=== PATIENT | male | born 1975 | race African-American/Black ===

== ENCOUNTER 2016-10-17 07:02 | Emergency (ER) | payer BC ==
[2016-10-17] MEDS ORDERED: SODIUM CHLORIDE 1,000 ML IV STA ×2 (07:04→08:32)
[2016-10-17] MEDS ORDERED: ONDANSETRON 4 MG/2 ML VIAL IVPB ONE (07:04)
[2016-10-17] MEDS ORDERED: morphine CARPU-JECT 4 MG/1 ML DISP.SYRIN IVPUSH PRN (07:04)
[2016-10-17] MEDS ORDERED: KETOROLAC TROMETHAMINE 30 MG/1 ML VIAL IVPUSH ONE (07:04)
--- NOTE | 2016-10-17 07:09 | PDOC ---
History of Present Illness - General Chief Complaint: Pain Stated Complaint: KIDNEY STONE Time Seen by Provider: 10/17/16 07:04 History Source: Patient Exam Limitations: No Limitations - History of Present Illness Initial Comments: 10/17/16 07:06 The patient is a 41-year-old male, with a significant past medical history of nephrolithiasis and ureterolithiasis, who presents to the emergency department with the acute onset of moderate to severe, waxing and waning, right-sided flank pain, accompanied by nausea and vomiting. He was seen in our emergency department on September 01 for left-sided flank pain. CT done at that time showed a 4 mm stone at the left UVJ. It also showed a 7 mm and a 4 mm stone in the inferior pole of the right kidney. He denies fever, chills, sweats. He denies abdominal pain, testicular pain. He states that this pain is of a very similar nature to the pain he experienced on September 01. Past History - Past Medical History Allergies/Adverse Reactions: Allergies Allergy/AdvReac Type Severity Reaction Status Date / Time No Known Allergies Allergy Verified 09/01/16 01:12 Home Medications: Ambulatory Orders Naproxen [Naprosyn] 500 mg PO BID PRN #20 tablet 10/17/16 Ondansetron [Zofran *Odt*] 8 mg SL TID #15 od.tablet 10/17/16 Oxycodone HCl/Acetaminophen [Percocet 5-325 mg Tablet] 1 - 2 tab PO Q4H #20 tablet MDD 8 10/17/16 Tamsulosin HCl [Flomax] 0.4 mg PO DAILY #30 cap.er.24h 10/17/16 - Psycho/Social/Smoking Cessation Hx Anxiety: No Suicidal Ideation: No Smoking History: Current every day smoker Have you smoked in the past 12 months: Yes Number of Cigarettes Smoked Daily: 2 'Breaking Loose' booklet given: 09/01/16 Hx Alcohol Use: No Drug/Substance Use Hx: No Substance Use Type: None Review of Systems - Review of Systems Comments:: 10/17/16 07:07 CONSTITUTIONAL: Absent: fever, chills, diaphoresis, generalized weakness, malaise, loss of appetite HEENT: Absent: rhinorrhea, nasal congestion, throat pain, throat swelling, difficulty swallowing, mouth swelling, ear pain, eye pain, visual Changes CARDIOVASCULAR: Absent: chest pain, loss of consciousness, palpitations, irregular heart rate, peripheral edema RESPIRATORY: Absent: cough, shortness of breath, dyspnea with exertion, orthopnea, wheezing, stridor, hemoptysis GASTROINTESTINAL: Present: Nausea, vomiting Absent: abdominal pain, abdominal distension, diarrhea, constipation, melena, hematochezia GENITOURINARY: Present: Flank pain Absent: dysuria, frequency, urgency, hesitancy, hematuria, genital pain MUSCULOSKELETAL: Absent: myalgia, arthralgia, joint swelling SKIN: Absent: rash, itching, pallor HEMATOLOGIC/IMMUNOLOGIC: Absent: easy bleeding, easy bruising, lymphadenopathy, frequent infections ENDOCRINE: Absent: unexplained weight gain, unexplained weight loss, heat intolerance, cold intolerance NEUROLOGIC: Absent: headache, focal weakness or paresthesias, dizziness, unsteady gait, seizure, mental status changes, bladder or bowel incontinence PSYCHIATRIC: Absent: anxiety, depression, suicidal or homicidal ideation, hallucinations. *Physical Exam - Physical Exam Comments: 10/17/16 07:07 GENERAL: Well developed, well nourished. Awake and alert. No acute distress. HEENT: Normocephalic, atraumatic. PERRLA, EOMI. No conjunctival pallor. Sclera are non- icteric. Moist mucous membranes. Oropharynx is clear. NECK: Supple. Full ROM. No JVD. Carotid pulses 2+ and symmetric, without bruits. No thyromegaly. No lymphadenopathy. CARDIOVASCULAR: Regular rate and rhythm. No murmurs, rubs, or gallops. Distal pulses are 2+ and symmetric. PULMONARY: No evidence of respiratory distress. Lungs clear to auscultation bilaterally. No wheezing, rales or rhonchi. ABDOMINAL: Right-sided CVA tenderness. Soft. Non-tender. Non-distended. No rebound or guarding. No organomegaly. Normoactive bowel sounds. MUSCULOSKELETAL Normal range of motion at all joints. No bony deformities or tenderness. EXTREMITIES: No cyanosis. No clubbing. No edema. No calf tenderness. SKIN: Warm and dry. Normal capillary refill. No rashes. No jaundice. NEUROLOGICAL: Alert, awake, appropriate. Cranial nerves 2-12 intact. No deficits to light touch and temperature in face, upper extremities and lower extremities. No motor deficits in the in face, upper extremities and lower extremities. Normoreflexic in the upper and lower extremities. Normal speech. Toes are down- going bilaterally. Gait is normal without ataxia. PSYCHIATRIC: Cooperative. Good eye contact. Appropriate mood and affect. Medical Decision Making - Medical Decision Making 10/17/16 07:08 The patient is well-appearing and in no acute distress His abdomen is soft and nontender Given his previous history of ureterolithiasis, his known right sided nephrolithiasis, I am highly suspicious for ureteral colic secondary to right sided ureterolithiasis Will place IV Will administer IV analgesia Will administer IV antiemetics Will obtain urinalysis At this point in time, I do not think there is a need for imaging 10/17/16 07:36 Pain has completely resolved Abdominal remains nontender Urinalysis pending 10/17/16 09:37 The patient is well appearing and asymptomatic He was able to urinate Clinical impression: Right-sided ureterolithiasis He has an a urologist to whom he was referred on his last visit I discussed the physical exam findings, ancillary test results and final diagnoses with the patient. I answered all of the patient's questions. The patient was satisfied with the care received and felt comfortable with the discharge plan and treatment plan. The patient will call their primary care physician within 24 hours to arrange follow-up and will return to the Emergency Department with any new, persistent or worsening symptoms. 10/17/16 09:42 Urinalysis noted, without any evidence of infection *DC/Admit/Observation/Transfer Diagnosis at time of Disposition: Kidney stone on right side - Discharge Dispostion Disposition: HOME Condition at time of disposition: Improved - Prescriptions Prescriptions: Tamsulosin HCl [Flomax] 0.4 mg PO DAILY #30 cap.er.24h Naproxen [Naprosyn] 500 mg PO BID PRN #20 tablet PRN Reason: Pain Oxycodone HCl/Acetaminophen [Percocet 5-325 mg Tablet] 1 - 2 tab PO Q4H #20 tablet MDD 8 Ondansetron [Zofran *Odt*] 8 mg SL TID #15 od.tablet - Patient Instructions Printed Discharge Instructions: Kidney Stones -- Adult Additional Instructions: If need be, make another appointment with the same urologist to whom you were referred on your last visit. Return to the emergency department immediately with ANY new, persistent or worsening symptoms. You MUST call and follow up with your doctor tomorrow. Please make sure your doctor reviews the results of your emergency department evaluation. - Post Discharge Activity Work/School Note: Back to Work
[2016-10-17] MEDS ORDERED: morphine CARPU-JECT 10 MG/1 ML DISP.SYRIN ONE (07:10)
[2016-10-17] MEDS ORDERED: ONDANSETRON 4 MG/2 ML VIAL ONE (07:10)
[2016-10-17] MEDS ORDERED: KETOROLAC TROMETHAMINE 30 MG/1 ML VIAL ONE (07:10)
[2016-10-17 08:14] VITALS: BP 110/72
[2016-10-17 08:26] VITALS: PULSE 57; TEMP 97.9; BMI 28.5
[2016-10-17 09:36] LABS: PH,URINE 5.5 (4.5-8); URINE BILIRUBIN 1+ (NEGATIVE); URINE GLUCOSE (UA) Negative (NEGATIVE); URINE KETONE Negative (NEGATIVE); URINE LEUK ESTERASE Negative (NEGATIVE); URINE NITRITE Negative (NEGATIVE); URINE UROBILINOGEN 0.2 E.U/dl (0.2-1.0)
[2016-10-17 09:41] LABS: URINE APPEARANCE CLOUDY; URINE BLOOD 3+ (NEGATIVE); URINE COLOR AMBER; URINE PROTEIN 1+ (NEGATIVE)
[2016-10-17 10:13] LABS: URINE RBC >100 /hpf (0-3)
== END 2016-10-17 09:55 | disposition home or self-care (01) ==
LOC: FER 07:02
PROC: 3E033NZ Introduction of Analgesics, Hypnotics, Sedatives into Peripheral Vein, Percutaneous Approach (ICD-10-PCS; principal; 2016-10-17)
PROC: 3E033GC Introduction of Other Therapeutic Substance into Peripheral Vein, Percutaneous Approach (ICD-10-PCS; 2016-10-17)
PROC: 3E0333Z Introduction of Anti-inflammatory into Peripheral Vein, Percutaneous Approach (ICD-10-PCS; 2016-10-17)
PROC: 3E0337Z Introduction of Electrolytic and Water Balance Substance into Peripheral Vein, Percutaneous Approach (ICD-10-PCS; 2016-10-17)
DX: N20.0 Calculus of kidney (principal); Z87.442 Personal history of urinary calculi; F17.210 Nicotine dependence, cigarettes, uncomplicated
CPT/HCPCS: 81003; 81015; 87086; 99284-25

== ENCOUNTER 2016-10-20 16:28 | Observation (INO) | payer BC ==
--- NOTE | 2016-10-20 16:31 | PDOC ---
History of Present Illness - History of Present Illness Initial Comments: 10/20/16 16:55 The patient is a 41 year old male with a past medical hx of nephrolithiasis and ureterolithiasis who presents to the ED complaining of right sided flank pain since 1330 this afternoon. The patient was last seen here on 10/17/16 for the same complaint and was discharged with a diagnosis of kidney stones. He describes the pain as constant and radiating into his RLQ. He reports he was feeling better after being discharged up until 1330 this afternoon. He notes he has been vomiting since the onset of his pain. He reports he took one Percocet for the pain but vomited shortly after so it did not help. His last bowel movement was this morning, which was normal. He denies dysuria, frequency, groin pain He denies cough, fever, chills, diarrhea PCP: Dr. Fulton Surgical: Denies any surgeries Social: No toxic habits reported <Mayra Reese - Last Filed: 10/20/16 17:32> - General History Source: Patient, Old Records Exam Limitations: No Limitations <Kathya Alas - Last Filed: 10/20/16 18:17> - General Chief Complaint: Pain Stated Complaint: KIDNEY STONE Time Seen by Provider: 10/20/16 16:31 Past History <Mayra Reese - Last Filed: 10/20/16 17:32> - Past Medical History Kidney Stones: Yes - Psycho/Social/Smoking Cessation Hx Anxiety: No Suicidal Ideation: No Smoking History: Current every day smoker Have you smoked in the past 12 months: Yes Number of Cigarettes Smoked Daily: 2 'Breaking Loose' booklet given: 10/17/16 Hx Alcohol Use: No Drug/Substance Use Hx: No Substance Use Type: None <Kathya Alas - Last Filed: 10/20/16 18:17> - Past Medical History Allergies/Adverse Reactions: Allergies Allergy/AdvReac Type Severity Reaction Status Date / Time No Known Allergies Allergy Verified 10/20/16 16:41 Home Medications: Ambulatory Orders Naproxen [Naprosyn] 500 mg PO BID PRN #20 tablet 10/17/16 Ondansetron [Zofran *Odt*] 8 mg SL TID #15 od.tablet 10/17/16 Oxycodone HCl/Acetaminophen [Percocet 5-325 mg Tablet] 1 - 2 tab PO Q4H #20 tablet MDD 8 10/17/16 Tamsulosin HCl [Flomax] 0.4 mg PO DAILY #30 cap.er.24h 10/17/16 Review of Systems - Review of Systems Able to Perform ROS?: Yes Comments:: 10/20/16 16:56 CONSTITUTIONAL: Absent: fever, chills, diaphoresis, generalized weakness, malaise, loss of appetite HEENT: Absent: rhinorrhea, nasal congestion, throat pain, throat swelling, difficulty swallowing, mouth swelling, ear pain, eye pain, visual Changes CARDIOVASCULAR: Absent: chest pain, syncope, palpitations, irregular heart rate, lightheadedness , peripheral edema RESPIRATORY: Absent: cough, shortness of breath, dyspnea with exertion, orthopnea, wheezing, stridor, hemoptysis GASTROINTESTINAL: +Nausea, vomiting, RLQ abdominal pain. Absent: abdominal distension, diarrhea, constipation, melena, hematochezia GENITOURINARY: +Right sided flank pain. Absent: dysuria, frequency, urgency, hesitancy, hematuria, genital pain MUSCULOSKELETAL: Absent: groin pain, myalgia, arthralgia, joint swelling SKIN: Absent: rash, itching, pallor HEMATOLOGIC/IMMUNOLOGIC: Absent: easy bleeding, easy bruising, lymphadenopathy, frequent infections ENDOCRINE: Absent: unexplained weight gain, unexplained weight loss, heat intolerance, cold intolerance NEUROLOGIC: Absent: headache, focal weakness or paresthesias, dizziness, unsteady gait, seizure, mental status changes, bladder or bowel incontinence PSYCHIATRIC: Absent: anxiety, depression, suicidal or homicidal ideation, hallucinations <Mayra Reese - Last Filed: 10/20/16 17:32> *Physical Exam - Vital Signs Last Vital Signs Temp Pulse Resp BP Pulse Ox 65 26 H 142/87 100 10/20/16 16:31 10/20/16 16:31 10/20/16 16:31 10/20/16 16:31 - Physical Exam Comments: 10/20/16 16:56 GENERAL: Well developed, well nourished. Awake and alert. In no acute distress. HEENT: Normocephalic, atraumatic. PERRLA, EOMI. No conjunctival pallor. Sclera are non- icteric. Moist mucous membranes. Oropharynx is clear. NECK: Supple. Full ROM. No JVD. Carotid pulses 2+ and symmetric, without bruits. No thyromegaly. No lymphadenopathy. CARDIOVASCULAR: Regular rate and rhythm. No murmurs, rubs, or gallops. Distal pulses are 2+ and symmetric. PULMONARY: No evidence of respiratory distress. Lungs clear to auscultation bilaterally. No wheezing, rales or rhonchi. ABDOMINAL: Soft. Non-tender. Non-distended. No rebound or guarding. No organomegaly. Normoactive bowel sounds. MUSCULOSKELETAL Normal range of motion at all joints. No bony deformities or tenderness. No CVA tenderness. EXTREMITIES: No cyanosis. No clubbing. No edema. No calf tenderness. SKIN: Warm and dry. Normal capillary refill. No rashes. No jaundice. NEUROLOGICAL: Alert, awake, appropriate. Cranial nerves 2-12 intact. No deficits to light touch and temperature in face, upper extremities and lower extremities. No motor deficits in the in face, upper extremities and lower extremities. Normoreflexic in the upper and lower extremities. Normal speech. Toes are downgoing bilaterally. Gait is normal without ataxia. PSYCHIATRIC: Cooperative. Good eye contact. Appropriate mood and affect. <Mayra Reese - Last Filed: 10/20/16 17:32> ED Treatment Course - RADIOLOGY Radiograph Interpretation: 10/20/16 17:33 [id number] US/KIDNEY / RENAL US HISTORY PROVIDED: Right flank pain. Real time examination of the kidneys demonstrates the following: The kidneys are normal in size with the right kidney measuring 10.8 x 6.0 x 6.6 cm and the left kidney measuring 11.6 x 6.2 x 7.8 cm. They are normal in position and texture with no evidence of hydronephrosis or contour deforming renal masses. There is no sonographic evidence of nephrolithiasis. IMPRESSION: Morphologically normal kidneys with no evidence of nephrolithiasis, hydronephrosis or acute pathology. Reported By: Foreign Cabrera MD 10/20/16 4319 - Medications Given in the ED: ED Medications Discontinued Medications Generic Name Dose Route Start Last Admin Trade Name Freq PRN Reason Stop Dose Admin Ketorolac Tromethamine 30 mg 10/20/16 16:32 10/20/16 16:35 Toradol Injection - IVPUSH 10/20/16 16:33 30 mg ONCE ONE Administration Ondansetron HCl 4 mg 10/20/16 16:40 10/20/16 16:45 Zofran Injection IVPUSH 10/20/16 16:41 4 mg ONCE ONE Administration <Mayra Reese - Last Filed: 10/20/16 17:32> - LABORATORY CBC & Chemistry Diagram: 10/20/16 16:35 10/20/16 16:35 <Kathya Alas - Last Filed: 10/20/16 18:17> Medical Decision Making - Medical Decision Making 10/20/16 16:51 41-year-old male with history of bilateral nephrolithiasis or's diagnosed in August 2016 and seen in the ED 3 days ago with complaints of right flank pain presents to the emergency department with recurrent pain in the right flank radiating to the right lower quadrant associated with nausea and vomiting that started at 1 PM today. Differential diagnosis includes but is not limited to:, Passage of stone, pyelonephritis, UTI, appendicitis (less likely given his non- tender abdomen on physical exam), dehydration, electrolyte abnormality, toxic/ metabolic derangement. Plan: 1. Labs 2. Urine analysis 3. Pain management 4. Antiemetics 5. Ultrasound to rule out hydronephrosis 6. Observe and reevaluate <Kathya Alas - Last Filed: 10/20/16 18:17> *DC/Admit/Observation/Transfer - Attestations Scribe Attestion: 10/20/16 16:55 Documentation prepared by Mayra Reese, acting as medical delivery technician for Kathya Alas MD <Mayra Reese - Last Filed: 10/20/16 17:32> - Attestations Physician Attestion: 10/20/16 16:52 I, Dr. Kathya Alas, attest that the scribes documentation that appears above has been prepared under my direction and personally reviewed by me in its entirety. I confirmed that the note above accurately reflects all work, treatment, procedures, and medical decision-making performed by me. <Kathya Alas - Last Filed: 10/20/16 18:17> Diagnosis at time of Disposition: Renal colic on right side - Discharge Dispostion Condition at time of disposition: Good - Referrals Referrals: Rebecca Fulton MD [Primary Care Provider] - [facility] [Non Staff, Medical] - Jared Ralph MD [Non Staff, Medical] -
[2016-10-20] MEDS ORDERED: KETOROLAC TROMETHAMINE 30 MG/1 ML VIAL IVPUSH ONE (16:32)
[2016-10-20] MEDS ORDERED: ONDANSETRON 4 MG/2 ML VIAL IVPUSH ONE (16:40)
[2016-10-20] MEDS ORDERED: ONDANSETRON 4 MG/2 ML VIAL ONE (16:41)
[2016-10-20] MEDS ORDERED: morphine CARPU-JECT 4 MG/1 ML DISP.SYRIN IVPUSH ONE ×2 (17:19→18:57)
[2016-10-20] MEDS ORDERED: morphine CARPU-JECT 10 MG/1 ML DISP.SYRIN ONE (17:21)
[2016-10-20 17:49] LABS: BASOPHIL 0.2 % (0-2.0); EOSINOPHIL 0.7 % (0-4.5); MCH 30.7 pg (25.7-33.7); MEAN PLT VOLUME 9.4 fl (7.5-11.1); NEUTROPHILS 63.1 % (42.8-82.8); PLATELET COUNT 243 K/MM3 (134-434); RDW 12.8 % (11.9-15.9); WHITE BLOOD COUNT 6.4 K/mm3 (4.0-10.0)
[2016-10-20 18:00] LABS: CALCIUM 9.4 mg/dl (8.4-10.2); CREATININE 1.4 mg/dl (0.6-1.3); MAGNESIUM 1.9 mg/dL (1.8-2.4); PHOSPHOROUS 3.5 mg/dl (2.5-4.6)
[2016-10-20] MEDS ORDERED: SODIUM CHLORIDE 1,000 ML IV STA (18:18)
[2016-10-20 18:37] LABS: URINE APPEARANCE Clear; URINE BILIRUBIN Negative (NEGATIVE); URINE GLUCOSE (UA) Negative (NEGATIVE); URINE KETONE Negative (NEGATIVE); URINE LEUK ESTERASE Negative (NEGATIVE); URINE NITRITE Negative (NEGATIVE); URINE PROTEIN Trace (NEGATIVE); URINE UROBILINOGEN 0.2 E.U/dl (0.2-1.0)
[2016-10-20 18:38] LABS: URINE BLOOD 3+ (NEGATIVE); URINE COLOR YELLOW
[2016-10-20 18:50] LABS: URINE BACTERIA FEW /hpf (NEGATIVE)
--- NOTE | 2016-10-20 19:28 | PDOC ---
*Physical Exam - Vital Signs Last Vital Signs Temp Pulse Resp BP Pulse Ox 97.4 F L 66 15 123/79 96 10/20/16 18:12 10/20/16 18:12 10/20/16 18:12 10/20/16 18:12 10/20/16 18:12 ED Treatment Course - LABORATORY CBC & Chemistry Diagram: 10/20/16 16:35 10/20/16 16:35 - ADDITIONAL ORDERS Additional order review: Laboratory Results 10/20/16 10/20/16 18:33 16:35 Sodium 133 L Potassium 3.7 Chloride 97 L Carbon Dioxide 27 Anion Gap 9 BUN 15 Creatinine 1.4 H Random Glucose 115 H Calcium 9.4 Phosphorus 3.5 Magnesium 1.9 Urine Color Yellow Urine Appearance Clear Urine pH 7.0 D Ur Specific [place] 1.020 Urine Protein Trace Urine Glucose (UA) Negative Urine Ketones Negative Urine Blood 3+ H Urine Nitrite Negative Urine Bilirubin Negative Urine Urobilinogen 0.2 e.u/dl Ur Leukocyte Esterase Negative Urine RBC 10-15 Urine WBC 2-4 Urine Bacteria Few 10/20/16 16:35 RBC 4.70 MCV 93.0 MCHC 33.0 RDW 12.8 MPV 9.4 Neutrophils % 63.1 Lymphocytes % 25.0 Monocytes % 11.0 H Eosinophils % 0.7 Basophils % 0.2 - Medications Given in the ED: ED Medications Discontinued Medications Generic Name Dose Route Start Last Admin Trade Name Unrulyq PRN Reason Stop Dose Admin Sodium Chloride 1,000 mls @ 1,000 mls/hr 10/20/16 18:18 10/20/16 17:50 Normal Saline - IV 10/20/16 19:17 1,000 mls/hr ASDIR STA Administration Ketorolac Tromethamine 30 mg 10/20/16 16:32 10/20/16 16:35 Toradol Injection - IVPUSH 10/20/16 16:33 30 mg ONCE ONE Administration Morphine Sulfate 4 mg 10/20/16 17:19 10/20/16 17:23 Morphine Injection - IVPUSH 10/20/16 17:20 4 mg ONCE ONE Administration Morphine Sulfate 4 mg 10/20/16 18:57 10/20/16 18:54 Morphine Injection - IVPUSH 10/20/16 18:58 4 mg ONCE ONE Administration Ondansetron HCl 4 mg 10/20/16 16:40 10/20/16 16:45 Zofran Injection IVPUSH 10/20/16 16:41 4 mg ONCE ONE Administration Medical Decision Making - Medical Decision Making 10/20/16 20:29 CT shows 7mm right sided proximal ureter stone; no hydronephrosis Patient still mildly nauseated and with discomfort on right side.Since the patient has required 3 doses of parenteral narcotic, with persistent pain and nausea in the presence of 7mm stone, observation admission for hydration and pain management is warranted Dr Ornelas yellow pages space salesperson for medical admissions; Patient admitted(observation) to her service. *DC/Admit/Observation/Transfer Diagnosis at time of Disposition: Renal colic on right side - Discharge Dispostion Condition at time of disposition: Fair Admit: Yes - Referrals - Patient Instructions - Post Discharge Activity
[2016-10-20] MEDS ORDERED: morphine CARPU-JECT 4 MG/1 ML DISP.SYRIN IVPUSH PRN (21:03)
[2016-10-20] MEDS ORDERED: ONDANSETRON 4 MG/2 ML VIAL IVPB PRN (21:09)
[2016-10-20] MEDS: HEPARIN NA (PORCINE) 5,000 UNITS/ML 1ML VIAL SQ SCH (22:36)
[2016-10-20] MEDS: KETOROLAC TROMETHAMINE 30 MG/1 ML VIAL IM PRN (23:03)
[2016-10-20 23:47] VITALS: BMI 30.8
[2016-10-21] MEDS ORDERED: TRIMETHOBENZAMIDE HCL 200MG/2ML INJ IM PRN (00:34)
[2016-10-21] MEDS: SODIUM CHLORIDE 1,000 ML IV SCH (01:00)
[2016-10-21] MEDS: TAMSULOSIN HCL 0.4 MG CAP.ER.24H (FP) PO SCH (09:21)
[2016-10-21] MEDS: HEPARIN NA (PORCINE) 5,000 UNITS/ML 1ML VIAL SQ SCH ×2 (09:22→21:30)
[2016-10-21] MEDS ORDERED: INFLUENZA VACCINE 45 MCG/0.5 ML (MDV 16-17) IM ONE (10:00)
--- NOTE | 2016-10-21 10:23 | CONSULT ---
Consult Consult Specialty:: urology Reason for Consultation:: 7mm upper ureteral calculus - History of Present Illness Chief Complaint: right sided flank pain History of Present Illness: right sided flank pain, 7mm upper right ureteral stone. Pain on admission but is better more recently. - History Source History Provided By: Patient Limitations to Obtaining History: No Limitations - Past Medical History Renal/: No: BPH, Cancer, Renal Calculi, UTI - Alcohol/Substance Use Hx Alcohol Use: No - Smoking History Smoking history: Current every day smoker Have you smoked in the past 12 months: Yes Aproximately how many cigarettes per day: 2 Home Medications - Allergies Allergies/Adverse Reactions: Allergies Allergy/AdvReac Type Severity Reaction Status Date / Time No Known Allergies Allergy Verified 10/20/16 16:41 - Home Medications Home Medications: Ambulatory Orders Naproxen [Naprosyn] 500 mg PO BID PRN #20 tablet 10/17/16 Ondansetron [Zofran *Odt*] 8 mg SL TID #15 od.tablet 10/17/16 Oxycodone HCl/Acetaminophen [Percocet 5-325 mg Tablet] 1 - 2 tab PO Q4H #20 tablet MDD 8 10/17/16 Tamsulosin HCl [Flomax] 0.4 mg PO DAILY #30 cap.er.24h 10/17/16 Review of Systems - Review of Systems Genitourinary: reports: Flank Pain, Frequency. denies: Burning, Dysuria, Hematuria, Incontinence Physical Exam Vital Signs: Vital Signs Temperature 98.5 F 10/21/16 05:01 Pulse Rate 63 10/21/16 05:01 Respiratory Rate 17 10/21/16 05:01 Blood Pressure 125/66 10/21/16 05:01 O2 Sat by Pulse Oximetry (%) 96 10/21/16 06:12 Constitutional: Yes: Well Nourished, No Distress, Calm Renal/: No: Bladder Distention, CVA Tenderness - Left, CVA Tenderness - Right , Mason Present, Hematuria Imaging - Results Cat Scan: Report Reviewed, Image Reviewed Problem List - Problems (1) Calculus of ureter Assessment/Plan: pain improved. can discharge on pain meds. plan for ESWL. Code(s): N20.1 - CALCULUS OF URETER
[2016-10-21 11:22] LABS: INR 1.14 (0.82-1.09); PROTHROMBIN TIME (PATIENT) 12.7 SEC (10.2-13.0)
[2016-10-21] MEDS: morphine CARPU-JECT 4 MG/1 ML DISP.SYRIN IVPB PRN ×2 (11:55→19:41)
--- NOTE | 2016-10-21 13:49 | EKG ---
Test Reason : Blood Pressure : / mmHG Vent. Rate : 068 BPM Atrial Rate : 068 BPM P-R Int : 184 ms QRS Dur : 078 ms QT Int : 388 ms P-R-T Axes : 033 019 -06 degrees QTc Int : 412 ms NORMAL SINUS RHYTHM NONSPECIFIC T WAVE ABNORMALITY ABNORMAL ECG NO PREVIOUS ECGS AVAILABLE Confirmed by JESUS PAREDES MD ([id number]) on 10/21/2016 1:49:02 PM Referred By: Suma Issa Confirmed By:JESUS PAREDES MD
--- NOTE | 2016-10-21 19:53 | HP ---
Admitting History and Physical - Admission Chief Complaint: FULL H&P note dictated./[facility] - Past Medical History Renal/: No: BPH, Cancer, Renal Calculi, UTI - Smoking History Smoking history: Current every day smoker Have you smoked in the past 12 months: Yes Aproximately how many cigarettes per day: 2 - Alcohol/Substance Use Hx Alcohol Use: No Home Medications - Allergies Allergies/Adverse Reactions: Allergies Allergy/AdvReac Type Severity Reaction Status Date / Time No Known Allergies Allergy Verified 10/20/16 16:41 - Home Medications Home Medications: Ambulatory Orders Naproxen [Naprosyn -] 500 mg PO BID PRN #20 tablet 10/17/16 Ondansetron [Zofran *Odt*] 8 mg SL TID #15 od.tablet 10/17/16 Oxycodone HCl/Acetaminophen [Percocet 5-325 mg Tablet] 1 - 2 tab PO Q4H #20 tablet MDD 8 10/17/16 Ketorolac Tromethamine [Toradol -] 10 mg PO TID PRN #12 tablet 10/21/16 Ondansetron [Zofran -] 8 mg PO Q8H PRN #10 tablet 10/21/16 Oxycodone HCl/Acetaminophen [Percocet 5-325 mg Tablet] 1 tab PO Q4H #20 tablet MDD 6 10/21/16 Tamsulosin HCl [Flomax -] 0.4 mg PO DAILY@0830 cap.er.24h 10/21/16 Tamsulosin HCl [Flomax] 0.4 mg PO DAILY #30 cap.er.24h 10/21/16 Physical Examination Vital Signs: Vital Signs Temperature 98.5 F 10/21/16 05:01 Pulse Rate 63 10/21/16 05:01 Respiratory Rate 17 10/21/16 05:01 Blood Pressure 125/66 10/21/16 05:01 O2 Sat by Pulse Oximetry (%) 96 10/21/16 06:12
[2016-10-21] MEDS ORDERED: KETOROLAC TROMETHAMINE 60 MG/2 ML VIAL IM ONE (20:22)
[2016-10-21] MEDS ORDERED: KETOROLAC TROMETHAMINE 10 MG TABLET PO PRN (20:33)
[2016-10-21] MEDS ORDERED: ONDANSETRON 8 MG TABLET (FP) PO PRN (20:40)
--- NOTE | 2016-10-21 21:04 | PN ---
Progress Note (short form) - Note Progress Note: 10-21-16 Pt reported Percocet 5/325 taken 1-2 tab on 10-17-16 did NOT help w pain but that Toradol given in ED did. Added Pain Rx Toradol 10 mg po Q8H/ TID to be given for pain 6-10 to take ONLY IF Oxycodone 5/325 1-2tab does NOT reduce level of pain to 1-5. Explained to Pt and MOM at Bedside. Paper hand Rx given to mom - [facility] Would NOT E Transmit.End of note.
--- NOTE | 2016-10-21 21:06 | HP ---
DATE OF ADMISSION: 10/20/2016 CHIEF COMPLAINT: Right lower back/flank pain for 1 or 2 days prior to admission. HISTORY OF PRESENT ILLNESS: A 41-year-old male with a history of a kidney stone for the 1st time in August 2016, which was delivered several days after, spontaneously. The patient was in usual state of health until he started having intense lower back pain on the right side, radiating to his groin. The patient came to the emergency department of this hospital on October 17, for which he was given pain medications and IV fluids and then sent home. He returned on today day of admission due to increased intensity of pain, with no resolution with any medication. PAST MEDICAL HISTORY: As mentioned previously. PAST SURGICAL HISTORY: Bilateral T&Ms when he was a little child. ALLERGIES: NKDA. PREADMISSION MEDICATIONS: None. PHYSICAL EXAMINATION: Vital Signs: Temperature initially in the emergency department was 97.4 and is now 98.5. Blood pressure initially 142/67 and the last one taken was 125/66. Pulse at this time is 71, regular. Respiratory rate 17. Room air SaO2 96%. General: He is awake, alert, oriented x3, in mild distress due to his pain, which at this point is in the groin and not in the right flank any more. The pain level at this time is 5/10. Neck: Supple. No JVD, no bruit. Lungs: Clear to auscultation. Breath sounds positive. Cardiac: S1 and 2 present. S3 and 4 absent. Positive regular rate and rhythm. No murmurs appreciated. Abdomen: Soft and depressible. No masses, no tenderness even with deep press in the right lower quadrant. No guarding, no rebound. Back: No CVA tenderness on either side. Extremities: Bilateral lower extremities, no edema, no Homans. Dorsalis pedis and all pulses 2+. Neurological: Nonfocal. LABORATORY DATA: WBC 6.4, hemoglobin 14, hematocrit 43, platelets 243, INR 1.14. Sodium 133, potassium 3.7, chloride 97, CO2 27, BUN 15, creatinine 1.4, glucose 115, calcium 9.4, phosphorus 3.5, magnesium 1.3. Urinalysis: 3+ blood, 10 to 15 RBCs, 2 to 4 WBCs, few bacteria, protein trace, glucose negative, ketones negative. EKG 68 per minute, normal sinus rhythm, nonspecific T-wave abnormalities. Chest x-ray: No acute disease in the chest. CT scan of the abdomen and pelvis without contrast, which was performed on October 20, while still in the emergency department, is reported as a 7-mm proximal right ureteral calculus with no significant hydronephrosis. The renal ultrasound done while the patient was in the emergency department as well is reported as morphologically normal, kidneys with no evidence of nephrolithiasis, hydronephrosis, or acute pathology. The follow up KUB which was done today, recommended by the urology consult, was reported as 2 calcifications, presumably reflecting right renal and right ureteral calcifications seen on recent CT scan. The renal stone is seen on the right kidney, reportedly a 4-mm calculus in the lower pole of the right kidney, as per the CT scan report. DIAGNOSIS: We have a 41-year-old male who has 1 episode of nephrolithiasis in August of 2016, which was spontaneously delivered, who comes to the emergency department on the day of admission with exquisite right flank and lower right flank and inguinal pain with clinical evidence showing right ureteral 7-mm calculus. Patient was admitted for renal colic as well as for pain management (patient's pain remains 9 to 10 over 10 with p.o. medications given from the emergency department visit on October 17, 2016). The patient was admitted and given generous IV fluids as well as IV medications for pain. Urology consultation was requested and Dr. Velasco kindly saw the patient today. The library consultant recommended the patient be sent home with p.o. medications for pain as well as p.o. Flomax, which he prescribed. The patient is to be discharged home today and to follow instructions as per the urology library consultant. I, as the primary care physician admitting the patient on this occasion, agree with the library consultant's recommendations. I discussed with the patient and his mother, who was at the patient's bedside the whole time I was there, the plan of care and answered questions to their satisfaction. BRYAN BANERJEE M.D. [id number]
--- NOTE | 2016-10-22 01:44 | PN ---
Progress Note (short form) - Note Progress Note: 10-21-16 Pt reported Percocet 5/325 taken 1-2 tab on 10-17-16 did NOT help w pain but that Toradol given in ED did. Added Pain Rx Toradol 10 mg po Q8H/ TID to be given for pain 6-10 to take ONLY IF Oxycodone 5/325 1-2tab does NOT reduce level of pain to 1-5. Explained to Pt and MOM at Bedside. Paper hand Rx given to mom - [facility] Would NOT E Transmit.End of note. 10-22-16 Pt was given Parenteral Morphine x 1 dose WITH IM Toradol 60 gm x 1 dose for pain 8-9 prior to dc home. While pt was resting in bed he fell asleep. Pt has been cleared to DC Home by [facility] mental health consultant and Admitting Primary MD but will stay overnite. Mom was at bedside. Anticipate DC Home in AM.End of note.
[2016-10-22] MEDS: SODIUM CHLORIDE 1,000 ML IV SCH (03:46)
[2016-10-22 06:19] VITALS: BP 131/77; PULSE 71; TEMP 97.6
[2016-10-22] MEDS: KETOROLAC TROMETHAMINE 30 MG/1 ML VIAL IM PRN (07:51)
[2016-10-22] MEDS ORDERED: ONDANSETRON 4 MG TABLET PO PRN (07:54)
[2016-10-22] MEDS: TAMSULOSIN HCL 0.4 MG CAP.ER.24H (FP) PO SCH (08:24)
== END 2016-10-22 11:01 | disposition home or self-care (01) ==
LOC: FER 16:28 → FM/S 21:33
DX: N20.1 Calculus of ureter (principal)
CPT/HCPCS: 36415; 71020-TC; 74000-TC; 74176-TC; 76775-TC; 80048; 81003; 81015; 83735; 84100; 85025; 85610; 87077; 87086; 93005; 99284-25; G0378; J1644

== ENCOUNTER 2016-11-07 12:45 | Emergency (ER) | payer BC ==
[2016-11-07] MEDS ORDERED: morphine CARPU-JECT 4 MG/1 ML DISP.SYRIN IVPUSH ONE (12:48)
[2016-11-07] MEDS ORDERED: SODIUM CHLORIDE 1,000 ML IV STA (12:48)
[2016-11-07] MEDS ORDERED: KETOROLAC TROMETHAMINE 30 MG/1 ML VIAL IVPUSH ONE (12:48)
--- NOTE | 2016-11-07 12:48 | PDOC ---
History of Present Illness - General Chief Complaint: Pain Stated Complaint: RT FLANK PAIN Time Seen by Provider: 11/07/16 12:48 History Source: Patient Exam Limitations: No Limitations - History of Present Illness Initial Comments: 11/07/16 12:50 The patient is a 41-year-old male, with a significant past medical history of nephrolithiasis and ureterolithiasis, who presents to the emergency department with the acute onset of moderate to severe, waxing and waning, right-sided flank pain, accompanied by nausea. The pain began approximately 4 hours ago. He was seen in our emergency department on September 01 for left-sided flank pain. CT done at that time showed a 4 mm stone at the left UVJ. It also showed a 7 mm and a 4 mm stone in the inferior pole of the right kidney. I saw him for another episode of ureteral colic on 10/17. His pain resolved after analgesics and he was discharged. He was seen again on 10/20, was admitted and then discharged on 10/23. CT performed on 10/23 showed the 7mm stone in the right ureter and the 4mm stone in the lower pole of the right kidney. Past History - Past Medical History Allergies/Adverse Reactions: Allergies Allergy/AdvReac Type Severity Reaction Status Date / Time No Known Allergies Allergy Verified 10/20/16 16:41 Home Medications: Ambulatory Orders Naproxen [Naprosyn -] 500 mg PO BID PRN #20 tablet 10/17/16 Ondansetron [Zofran -] 8 mg PO Q8H PRN #10 tablet 10/21/16 Tamsulosin HCl [Flomax] 0.4 mg PO DAILY #30 cap.er.24h 10/21/16 Oxycodone HCl/Acetaminophen [Percocet 5-325 mg Tablet -] 1 tab PO Q4H #20 tablet MDD 6 10/28/16 Kidney Stones: Yes - Psycho/Social/Smoking Cessation Hx Anxiety: No Suicidal Ideation: No Smoking History: Current every day smoker Have you smoked in the past 12 months: Yes Number of Cigarettes Smoked Daily: 2 'Breaking Loose' booklet given: 10/17/16 Hx Alcohol Use: No Drug/Substance Use Hx: No Substance Use Type: None Review of Systems - Review of Systems Comments:: 11/07/16 12:53 CONSTITUTIONAL: Absent: fever, chills, diaphoresis, generalized weakness, malaise, loss of appetite HEENT: Absent: rhinorrhea, nasal congestion, throat pain, throat swelling, difficulty swallowing, mouth swelling, ear pain, eye pain, visual Changes CARDIOVASCULAR: Absent: chest pain, loss of consciousness, palpitations, irregular heart rate, peripheral edema RESPIRATORY: Absent: cough, shortness of breath, dyspnea with exertion, orthopnea, wheezing, stridor, hemoptysis GASTROINTESTINAL: Present: Right flank pain, nausea Absent: abdominal pain, abdominal distension, vomiting, diarrhea, constipation, melena, hematochezia GENITOURINARY: Absent: dysuria, frequency, urgency, hesitancy, hematuria, genital pain MUSCULOSKELETAL: Absent: myalgia, arthralgia, joint swelling SKIN: Absent: rash, itching, pallor HEMATOLOGIC/IMMUNOLOGIC: Absent: easy bleeding, easy bruising, lymphadenopathy, frequent infections ENDOCRINE: Absent: unexplained weight gain, unexplained weight loss, heat intolerance, cold intolerance NEUROLOGIC: Absent: headache, focal weakness or paresthesias, dizziness, unsteady gait, seizure, mental status changes, bladder or bowel incontinence PSYCHIATRIC: Absent: anxiety, depression, suicidal or homicidal ideation, hallucinations. *Physical Exam - Physical Exam Comments: 11/07/16 12:53 GENERAL: Well developed, well nourished. Awake and alert. No acute distress. HEENT: Normocephalic, atraumatic. PERRLA, EOMI. No conjunctival pallor. Sclera are non- icteric. Moist mucous membranes. Oropharynx is clear. NECK: Supple. Full ROM. No JVD. Carotid pulses 2+ and symmetric, without bruits. No thyromegaly. No lymphadenopathy. CARDIOVASCULAR: Regular rate and rhythm. No murmurs, rubs, or gallops. Distal pulses are 2+ and symmetric. PULMONARY: No evidence of respiratory distress. Lungs clear to auscultation bilaterally. No wheezing, rales or rhonchi. ABDOMINAL: Right CVA tenderness. Soft. Non-tender. Non-distended. No rebound or guarding. No organomegaly. Normoactive bowel sounds. MUSCULOSKELETAL Normal range of motion at all joints. No bony deformities or tenderness. EXTREMITIES: No cyanosis. No clubbing. No edema. No calf tenderness. SKIN: Warm and dry. Normal capillary refill. No rashes. No jaundice. NEUROLOGICAL: Alert, awake, appropriate. Cranial nerves 2-12 intact. No deficits to light touch and temperature in face, upper extremities and lower extremities. No motor deficits in the in face, upper extremities and lower extremities. Normoreflexic in the upper and lower extremities. Normal speech. Toes are down- going bilaterally. Gait is normal without ataxia. PSYCHIATRIC: Cooperative. Good eye contact. Appropriate mood and affect. 11/07/16 12:54 Medical Decision Making - Medical Decision Making 11/07/16 12:54 The patient is well-appearing and in no acute distress He is reporting right-sided flank pain His abdomen is soft and nontender Will obtain urinalysis Will provide analgesia with IV morphine and IV Toradol Will provide antiemesis with IV zofran Will image with US to r/o significant hydronephrosis 11/07/16 13:11 Symptoms improved 11/07/16 14:31 Ultrasound noted: The 7.5 mm stone is in the inferior pole of the kidney, and is not likely to be the stone causing pain I suspect that the 4 mm stone is in the process of passing There is no significant hydro-nephrosis His pain is completely resolved, and he is resting comfortably I feel that discharge, with close follow-up is appropriate He has Naprosyn and Flomax at home He has an appointment with his urologist Clinical impression: Ureterolithiasis Ureteral colic, resolved I discussed the physical exam findings, ancillary test results and final diagnoses with the patient. I answered all of the patient's questions. The patient was satisfied with the care received and felt comfortable with the discharge plan and treatment plan. The patient will call their primary care physician within 24 hours to arrange follow-up and will return to the Emergency Department with any new, persistent or worsening symptoms. 11/07/16 14:34 *DC/Admit/Observation/Transfer Diagnosis at time of Disposition: Kidney stone on right side - Discharge Dispostion Disposition: HOME Condition at time of disposition: Improved - Referrals Referrals: Rebecca Fulton MD [Primary Care Provider] - - Patient Instructions Printed Discharge Instructions: DI for Kidney Stones Additional Instructions: Return to the emergency department immediately with ANY new, persistent or worsening symptoms. You MUST call and follow up with your doctor tomorrow. Please make sure your doctor reviews the results of your emergency department evaluation. Please follow-up with your neurologist as soon as possible.
[2016-11-07] MEDS ORDERED: ONDANSETRON 4 MG/2 ML VIAL IVPB ONE (12:58)
[2016-11-07] MEDS ORDERED: ONDANSETRON 4 MG/2 ML VIAL ONE (12:58)
[2016-11-07 12:59] LABS: PH,URINE 8.5 (4.5-8); URINE BILIRUBIN Negative (NEGATIVE); URINE GLUCOSE (UA) Negative (NEGATIVE); URINE KETONE Negative (NEGATIVE); URINE LEUK ESTERASE Negative (NEGATIVE); URINE NITRITE Negative (NEGATIVE); URINE PROTEIN Negative (NEGATIVE); URINE UROBILINOGEN 0.2 E.U/dl (0.2-1.0)
[2016-11-07 13:00] LABS: URINE APPEARANCE SL CLOUDY; URINE BLOOD 3+ (NEGATIVE); URINE COLOR AMBER
[2016-11-07 13:13] VITALS: BP 137/87; PULSE 67; TEMP 98.7; BMI 30.5
[2016-11-07 13:16] LABS: URINE MUCUS FEW; URINE RBC 20-30 /hpf (0-3); URINE WBC 0-1 (3-5)
[2016-11-07] MEDS ORDERED: OXYCODONE/APAP 5/325MG COMBO TABLET PO ONE (13:25)
[2016-11-07] MEDS ORDERED: OXYCODONE/APAP 5/325MG COMBO TABLET ONE (13:46)
== END 2016-11-07 15:15 | disposition home or self-care (01) ==
LOC: FER 12:45
PROC: 3E0333Z Introduction of Anti-inflammatory into Peripheral Vein, Percutaneous Approach (ICD-10-PCS; principal; 2016-11-07)
PROC: 3E033NZ Introduction of Analgesics, Hypnotics, Sedatives into Peripheral Vein, Percutaneous Approach (ICD-10-PCS; 2016-11-07)
PROC: 3E033GC Introduction of Other Therapeutic Substance into Peripheral Vein, Percutaneous Approach (ICD-10-PCS; 2016-11-07)
PROC: 3E0337Z Introduction of Electrolytic and Water Balance Substance into Peripheral Vein, Percutaneous Approach (ICD-10-PCS; 2016-11-07)
DX: N23 Unspecified renal colic (principal); F17.210 Nicotine dependence, cigarettes, uncomplicated; Z87.442 Personal history of urinary calculi
CPT/HCPCS: 76775-TC; 81003; 81015; 99283-25

== ENCOUNTER 2016-11-19 10:37 | Day surgery (SDC) | payer BC ==
[2016-11-18 17:48] VITALS: BMI 28.8
[~2016-11-19 10:37] MED LIST: LIDOCAINE HCL 2% JELLY 10 ML CARTRIDGE TP ONE
[2016-11-19] MEDS ORDERED: PROPOFOL 20 ML ONE ×2 (13:37)
[2016-11-19] MEDS ORDERED: LIDOCAINE HCL 2% JELLY 10 ML CARTRIDGE ONE ×2 (13:49→14:51)
[2016-11-19] MEDS ORDERED: ONDANSETRON 4 MG/2 ML VIAL IVPUSH PRN (14:03)
[2016-11-19] MEDS ORDERED: IBUPROFEN 800 MG/8 ML IJ IVPB PRN (14:09)
--- NOTE | 2016-11-19 14:09 | HP ---
[facility] - Chief Complaint History of Present Illness: right sided flank pain. Obstructing ureteral stone. History Source: Patient, Medical Record Limitations to Obtaining History: No Limitations - Past Medical History Allergies/Adverse Reactions: Allergies Allergy/AdvReac Type Severity Reaction Status Date / Time No Known Allergies Allergy Verified 11/18/16 17:39 [employer] INSPECTOR: No: Alzheimer's, CVA, Dementia, Migraine, Multiple Sclerosis, Peripheral Neuropathy, Parkinson's, Seizure, Syncope, TIA, Vertigo, Other Cardiovascular: No: AFIB, Aneurysm, Aortic Insufficiency, Aortic Stenosis, CAD, CHF, Deep Vein Thrombosis, HTN, Hyperlipdemia, [place], Mitral Insufficiency, Mitral Stenosis, Murmur, Pulmonary Hypertension, Other Gastrointestinal: No: Ascites, Cancer, Constipation, Crohn's Disease, Diverticulitis, Diverticulosis, Esophageal Varices, Gastritis, GERD, GI Bleed, Hemorrhoids, Hiatal Hernia, Inflamatory Bowel Disease, Irritable Bowel Disease, Pancreatitis, Peptic Ulcer Disease, Ulcerative Colitis, Other Renal/: Yes: Renal Calculi - Current Medications Current Medications: Home Medications Medication Instructions Recorded Tamsulosin HCl [Flomax] 0.4 mg PO DAILY #30 cap.er.24h 10/21/16 Oxycodone HCl/Acetaminophen 1 tab PO Q4H #20 tablet MDD 6 11/07/16 [Percocet 5-325 mg Tablet] [facility]ellite Physical Exam - Physical Examination Vital Signs: Vital Signs Period Temp Pulse Resp BP Sys/Alejandre Pulse Ox Last 24 Hr 97.6 F 78 18 141/89 97 General Appearance: Well Nourished, Well Developed, Alert & Oriented x3 ENT: Clear, No Discharge, No masses Lung: Clear to auscultation Heart: Regular rate & rhythm, Normal S1, Normal S2 Abdomen: Soft, No tenderness, No CVA Satellite Impression/Plan - Impression/Plan Impression: right ureteral stone Operative Procedure: right ureteroscopic laser lithotripsy Date to be Performed: 11/19/16
[2016-11-19] MEDS ORDERED: ACETAMINOPHEN 1000 MG/100 ML VIAL (NON FORMULARY) IVPB ONE (14:10)
[2016-11-19] MEDS ORDERED: LACTATED RINGERS SOLUTION 1,000 ML IV SCH (14:15)
[2016-11-19] MEDS ORDERED: DEXTROSE 5%-0.45% SALINE 1,000 ML IV SCH (14:15)
[2016-11-19] MEDS ORDERED: ceFAZolin SODIUM 1 GM VIAL IVPB ONE ×2 (14:19)
[2016-11-19] MEDS ORDERED: LIDOCAINE HCL 2% JELLY 10 ML CARTRIDGE TP ONE (14:52)
[2016-11-19] MEDS ORDERED: ACETAMINOPHEN INJECTION 100 ML IVPB ONE ×2 (15:29→15:30)
[2016-11-19 15:56] VITALS: TEMP 97.7
[2016-11-19 17:55] VITALS: BP 143/78; PULSE 76
--- NOTE | 2016-11-19 19:24 | OP ---
DATE OF OPERATION: 11/19/2016 SURGEON: Chuckie Velasco MD PREOPERATIVE DIAGNOSIS: Obstructive distal right ureteral calculus and renal colic. POSTOPERATIVE DIAGNOSIS: Obstructive distal right ureteral calculus and renal colic. PROCEDURE: Cystoscopy, right ureteroscopy, laser lithotripsy, retrograde pyelogram, and ureteral stent placement. DRAINS: A 6 x 26 double-J ureteral stent. FINDINGS: An impacted stone in the distal right ureter with hydronephrosis. PREOPERATIVE INDICATIONS: The patient is a 41-year-old male who has attempted to pass a 6-mm stone. He has had severe pain. He has a stone impacted in his distal left ureter. He comes to the OR. OPERATION: The patient was brought to the OR, placed on the table in the supine position, given general anesthesia and placed in the modified lithotomy position. The groin was prepped and draped sterilely. Time-out was performed. Cystoscopy was performed. Distal urethra and prostate were normal. The bladder itself also was normal. No tumors or stones were seen. Both ureteral orifices were visualized. Attempts at passing a wire up the right ureter were made difficult by the obstructing stone. Ultimately, sensor wire was passed up into the right kidney. A 10-Wolof dual lumen catheter was placed to dilate the ureteral orifice, and the scope was passed through the distal ureter. The stone was visualized in the distal ureter. It was impacted into the ureter. Using the Holmium Laser Fiber, the stone was broken up into small passable fragments. Proximal to the stone, the ureter appeared to be dilated. Retrograde pyelogram did confirm hydroureteronephrosis. No other stones were seen. A 6 x 26 double-J ureteral stent was left in place with one loop in the kidney and one loop in the bladder. The bladder was emptied. The patient was woken up. Rita [id number]
== END 2016-11-19 18:00 | disposition home or self-care (01) ==
LOC: JOR 10:37 → JASU-SURG 10:37
PROVIDERS: ATTEND Urology
PROC: 0TF68ZZ Fragmentation in Right Ureter, Via Natural or Artificial Opening Endoscopic (ICD-10-PCS; principal; 2016-11-19 12:00)
PROC: 0T768DZ Dilation of Right Ureter with Intraluminal Device, Via Natural or Artificial Opening Endoscopic (ICD-10-PCS; 2016-11-19 12:00)
PROC: BT1DYZZ Fluoroscopy of Right Kidney, Ureter and Bladder using Other Contrast (ICD-10-PCS; 2016-11-19 12:00)
DX: N13.2 Hydronephrosis with renal and ureteral calculous obstruction (principal)
CPT/HCPCS: 76000-TC; 94760

== ENCOUNTER 2018-05-13 15:35 | Inpatient (IN) | payer BC ==
[2018-05-13] MEDS ORDERED: HEPARIN - 25,000 UNIT in SODIUM CHLORIDE 495 ML IV SCH (16:00)
[2018-05-13] MEDS ORDERED: HEPARIN NA (PORCINE) 5,000 UNITS/ML 1ML VIAL IVPUSH PRN (16:00)
[2018-05-13] MEDS ORDERED: SODIUM CHLORIDE 1,000 ML IV STA (16:10)
[2018-05-13] MEDS ORDERED: morphine CARPU-JECT 4 MG/1 ML DISP.SYRIN IVPUSH ONE (16:19)
[2018-05-13] MEDS ORDERED: HEPARIN NA (PORCINE) 5,000 UNITS/ML 1ML VIAL ONE (16:23)
[2018-05-13] MEDS ORDERED: morphine SULFATE 4 MG/ML VIAL ONE (16:23)
[2018-05-13] MEDS ORDERED: HEPARIN INFUSION - 25,000 UNITS/500 ML INFUS.BAG IVPB ONE (16:24)
--- NOTE | 2018-05-13 16:30 | PDOC ---
History of Present Illness - General Chief Complaint: Shortness of Breath Stated Complaint: DVT WITH NEW SOB Time Seen by Provider: 05/13/18 15:57 History Source: Patient Exam Limitations: No Limitations - History of Present Illness Initial Comments: 05/13/18 16:24 Patient is a 42M with no significant medical history here today complaining of leg swelling for the past week and shortness of breath with chest pain for the past two days. Patient was seen at his PCP where a doppler US showed DVT in the right popliteal and right posterior tibial veins. Denies fevers, chills, nausea vomiting. His chest pain is worsened with inspiration. Denies history of blood clots and in his family. Father had lymphoma at 40. Denies cancer history. Denies recent travel and long periods of immobilization. PCP: Donaldo Past History - Past Medical History Allergies/Adverse Reactions: Allergies Allergy/AdvReac Type Severity Reaction Status Date / Time No Known Allergies Allergy Verified 05/13/18 15:50 Home Medications: Ambulatory Orders NK [No Known Home Medication] 05/13/18 Anemia: No Asthma: No Cancer: No Cardiac Disorders: No CVA: No COPD: No CHF: No Dementia: No Diabetes: No GI Disorders: No Disorders: No HTN: No Hypercholesterolemia: No Kidney Stones: Yes Liver Disease: No Seizures: No Thyroid Disease: No - Suicide/Smoking/Psychosocial Hx Smoking History: Never smoked Have you smoked in the past 12 months: Yes Number of Cigarettes Smoked Daily: 2 'Breaking Loose' booklet given: 11/07/16 Hx Alcohol Use: No Drug/Substance Use Hx: No Substance Use Type: None Hx Substance Use Treatment: No Review of Systems - Review of Systems Comments:: 05/13/18 16:27 GENERAL/CONSTITUTIONAL: No fever or chills. No weakness. HEAD, EYES, EARS, NOSE AND THROAT: No change in vision. No sore throat. CARDIOVASCULAR: +chest pain +shortness of breath RESPIRATORY: No cough, wheezing, or hemoptysis. GASTROINTESTINAL: No nausea, vomiting, diarrhea or constipation. GENITOURINARY: No dysuria, frequency, or change in urination. MUSCULOSKELETAL: +r leg pain. No neck or back pain. SKIN: No rash NEUROLOGIC: No headache, vertigo, loss of consciousness, or change in strength/ sensation. ENDOCRINE: No increased thirst. No abnormal weight change HEMATOLOGIC/LYMPHATIC: No anemia, easy bleeding, or history of blood clots. ALLERGIC/IMMUNOLOGIC: No hives or skin allergy. *Physical Exam - Vital Signs Last Vital Signs Temp Pulse Resp BP Pulse Ox 98.8 F 80 26 H 131/77 98 05/13/18 15:49 05/13/18 15:51 05/13/18 15:49 05/13/18 15:49 05/13/18 15:51 - Physical Exam Comments: 05/13/18 16:28 GENERAL: Awake, alert, and fully oriented, in no acute distress HEAD: No signs of trauma, normocephalic, atraumatic EYES: PERRLA, EOMI, sclera anicteric, conjunctiva clear ENT: Auricles normal inspection, hearing grossly normal, nares patent, oropharynx clear without exudates. Moist mucosa NECK: Normal ROM, supple, no lymphadenopathy, JVD, or masses LUNGS: No distress, speaks full sentences, clear to auscultation bilaterally HEART: Regular rate and rhythm, normal S1 and S2, no murmurs, rubs or gallops, peripheral pulses normal and equal bilaterally. ABDOMEN: Soft, nontender, normoactive bowel sounds. No guarding, no rebound. No masses EXTREMITIES: +edema to right leg. No clubbing or cyanosis. NEUROLOGICAL: Cranial nerves II through XII grossly intact. Normal speech, no focal sensorimotor deficits SKIN: Warm, Dry, normal turgor, no rashes or lesions noted. ED Treatment Course - LABORATORY CBC & Chemistry Diagram: 05/13/18 15:45 05/13/18 15:45 - RADIOLOGY Radiology Studies Ordered: Category Date Time Status CHEST CTA [CT] Stat CT Scan 05/13/18 16:01 Ordered CHEST X-RAY PORTABLE* [RAD] Stat Radiology 05/13/18 15:58 Taken Medical Decision Making - Medical Decision Making 05/13/18 16:31 Patient is 42M here today with DVT and likely PE. Vital signs notable for tachypnea, but no tachycardia or hypoxia. Blood pressure stable. Will do cbc, cmp, pt/inr, d-dimer, trop, EKG, CXR, CTA chest to evaluate need for possible thrombectomy. Patient started on heparin, given 7.7k U (80u/kg) bolus and started on heparin drip. Plan to convert if CTA doesn't reveal need for thrombectomy. 05/13/18 17:51 Laboratory Tests 05/13/18 05/13/18 05/13/18 15:45 15:45 15:45 WBC 7.4 Hgb 14.7 Plt Count 217 BUN 12 Creatinine 1.1 Troponin I < 0.03 CBC normal. BUN/Cr safe for CTA. Troponin undetectable. EKG shows normal sinus rhythm with rate of 75. No st elevations/depressions. Inverted t waves in III and aVF. Normal axis. Normal intervals. 05/13/18 17:53 CXR shows no acute cardiopulmonary process. Patient reassessed. HR 89, spO2 96, RR 19, 143/87. 05/13/18 18:47 CTA shows bilateral PE, will admit to tele. Will maintain heparin drip. Admitted to tele to [facility]. *DC/Admit/Observation/Transfer Diagnosis at time of Disposition: Pulmonary embolism - Discharge Dispostion Condition at time of disposition: Stable Decision to Admit order: Yes - Referrals Referrals: Rebecca Fulton MD [Primary Care Provider] - - Patient Instructions - Post Discharge Activity
[2018-05-13 16:35] LABS: BASO % 0.2 % (0-2.0); EOS % 1.4 % (0-4.5); HEMATOCRIT 44.3 % (35.4-49); HEMOGLOBIN 14.7 GM/dl (11.7-16.9); LYMPH % 9.1 % (8-40); MCH 31.7 pg (25.7-33.7); MCHC 33.2 g/dl (32.0-35.9); MEAN CELL VOLUME 95.3 fl (80-96); MEAN PLT VOLUME 9.6 fl (7.5-11.1); MONO % 9.7 % (3.8-10.2); NEUT % 79.6 % (42.8-82.8); PLATELET COUNT 217 K/MM3 (134-434); RBC 4.65 M/mm3 (4.00-5.60); RDW 12.8 % (11.9-15.9); WHITE BLOOD COUNT 7.4 K/mm3 (4.0-10.8)
[2018-05-13 16:42] LABS: INR 0.93 (0.82-1.09); PROTHROMBIN TIME (PATIENT) 10.4 SEC (10.2-13.0)
[2018-05-13 16:48] LABS: ALBUMIN 1.5 g/dl (3.5-5.0); ALK PHOS 51 U/L (32-92); ANION GAP 7 MMOL/L (8-16); BILIRUBIN,TOTAL 1.2 mg/dl (0.2-1.0); BLOOD UREA NITROGEN 12 mg/dl (7-18); CALCIUM 7.9 mg/dl (8.4-10.2); CHLORIDE 101 mmol/L (98-107); CO2 27 mmol/L (22-28); CREATININE 1.1 mg/dl (0.6-1.3); GLUCOSE,RANDOM 87 mg/dl (74-106); MAGNESIUM 1.8 mg/dL (1.8-2.4); POTASSIUM 3.7 mmol/L (3.5-5.1); SGOT/AST 21 U/L (10-42); SGPT/ALT 15 U/L (10-40); SODIUM 135 mmol/L (136-145); TOT PROT 4.8 g/dl (6.4-8.3)
--- NOTE | 2018-05-13 17:02 | PDOC ---
Attending Attestation - Resident Resident Name: Chuckie Shahid - ED Attending Attestation I have performed the following: I have examined & evaluated the patient, The case was reviewed & discussed with the resident, I agree w/resident's findings & plan, Exceptions are as noted - HPI HPI: 05/13/18 17:02 Agree with HPI - Physicial Exam PE: 05/13/18 17:02 Agree with Residents PE - Medical Decision Making 05/13/18 18:51 1 week history of leg swelling no PE DVT risk factors now with chest pain shortness of breath and pleurisy for the last 2 days. Saw his primary care provider had a lower extremity Doppler which was positive for right popliteal advice posterior tibial veins. No travel no injury no cancer history no trauma. Pain is persistent constant worse with inspiration and exertion. Given symptoms of chest pain shortness of breath CTA was ordered CT findings as dictated. Bedside ultrasound demonstrates no acute evidence of right-sided heart strain, CT with no evidence of right-sided heart strain, troponin negative Patient hemodynamically stable will be admitted to [facility] telemetry will require hematology consultation and admission for further management Heparin bolus heparin drip started upon arrival to the ED. Heart Score/ECG Review - ECG Impressions Comment:: 05/13/18 18:52 Sinus rhythm [address] elevations. Isolated T-wave inversion in lead 3 questionable biphasic T-wave in aVF, normal access no evidence of right heart strain.
[2018-05-13] MEDS ORDERED: KETOROLAC TROMETHAMINE 30 MG/1 ML VIAL ONE (22:02)
[2018-05-13] MEDS ORDERED: KETOROLAC TROMETHAMINE 30 MG/1 ML VIAL IVPUSH ONE (22:02)
[2018-05-14 01:21] VITALS: BMI 29.6
[2018-05-14] MEDS ORDERED: HEPARIN NA (PORCINE) 5,000 UNITS/ML 1ML VIAL IVPUSH PRN ×2 (06:10)
[2018-05-14] MEDS ORDERED: HEPARIN INFUSION - 25,000 UNITS/500 ML INFUS.BAG IVPB SCH (06:15)
--- NOTE | 2018-05-14 07:56 | HP ---
CHIEF COMPLAINT: Right lower extremity swelling with back pain PCP: Dr. Sneed HISTORY OF PRESENT ILLNESS: Patient is a 42 year old male with no significant past medical history was sent from his PCP's office for the treatment of newly diagnosed RLE DVT. As per the patient, he was in usual state of health until a week ago then he started noticing swelling of the RLE. It started suddenly, it was intermittent, associated with pressure type of pain, 3/10 in intensity which resolved spontaneously in few days. Then he started developing pain in the left scapula which travelled to the right scapula, radiating towards his right rib, 5/10 in intensity. The back pain persisted for which he went to a pharmacy informatics specialist 4 days ago, was given a cortisone shot for a " muscle knot" as per the patient. The pain subsided for 2 days and came back hence went to his PCP for further evaluation. His doctor noticed swelling of the right lower extremity, duplex was done at the office and found to have a clot in the right popliteal vein. Therefore, sent to the ER for the treatment of DVT. Denies any chest pain, sob, cough, palpitation, abdominal pain, nausea or vomiting. Bowel/Bladder habit normal. Sleep/Appetite normal. Gives a h/o travel to [place] which was [address] 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 Denies smoking, hormonal pills. Gives family h/o lymphoma (father) and clot ( father)-details unknown. ER course was notable for: (1) Afebrile, hemodynamically stable, labs normal. (2) EKG: NSR (3) CT chest: Multiple B/L emboli (4) Heparin Drip Recent Travel: 3.5 hrs ride to [place] 3 weeks ago. PAST MEDICAL HISTORY: None PAST SURGICAL HISTORY: Right ureteroscopic laser lithotripsy (11/2016) Social History: Smoking: Denies Alcohol: Occasional Drugs: Denies Family History: Father- Lymphoma, clot Allergies No Known Allergies Allergy (Verified 05/13/18 15:50) HOME MEDICATIONS: Home Medications Medication Instructions Recorded NK [No Known Home Medication] 05/13/18 REVIEW OF SYSTEMS CONSTITUTIONAL: Absent: fever, chills, diaphoresis, generalized weakness, malaise, loss of appetite, weight change HEENT: Absent: rhinorrhea, nasal congestion, throat pain, throat swelling, difficulty swallowing, mouth swelling, ear pain, eye pain, visual changes CARDIOVASCULAR: Absent: chest pain, syncope, palpitations, irregular heart rate, lightheadedness , peripheral edema RESPIRATORY: Absent: cough, shortness of breath, dyspnea with exertion, orthopnea, wheezing, stridor, hemoptysis GASTROINTESTINAL: Absent: abdominal pain, abdominal distension, nausea, vomiting, diarrhea, constipation, melena, hematochezia GENITOURINARY: Absent: dysuria, frequency, urgency, hesitancy, hematuria, flank pain, genital pain MUSCULOSKELETAL: Present: RLE swelling, back pain Absent: myalgia, arthralgia, neck pain SKIN: Absent: rash, itching, pallor HEMATOLOGIC/IMMUNOLOGIC: Absent: easy bleeding, easy bruising, lymphadenopathy, frequent infections ENDOCRINE: Absent: unexplained weight gain, unexplained weight loss, heat intolerance, cold intolerance NEUROLOGIC: Absent: headache, focal weakness or paresthesias, dizziness, unsteady gait, seizure, mental status changes, bladder or bowel incontinence PSYCHIATRIC: Absent: anxiety, depression, suicidal or homicidal ideation, hallucinations. PHYSICAL EXAMINATION Vital Signs - 24 hr 05/13/18 05/13/18 05/13/18 15:49 15:51 16:00 Temperature 98.8 F Pulse Rate 79 80 Pulse Rate [ 80 Apical] Respiratory 26 H 21 Rate Blood Pressure 131/77 Blood Pressure 134/79 [Right Arm] O2 Sat by Pulse 98 98 98 Oximetry (%) 05/13/18 05/13/18 05/13/18 16:30 17:40 18:36 Temperature Pulse Rate Pulse Rate [ 80 90 89 Apical] Respiratory 17 20 18 Rate Blood Pressure Blood Pressure 130/77 143/87 139/81 [Right Arm] O2 Sat by Pulse 97 96 96 Oximetry (%) 05/13/18 05/13/18 05/13/18 20:00 20:32 22:06 Temperature 98.9 F Pulse Rate 83 Pulse Rate [ 85 91 H Apical] Respiratory 17 17 15 Rate Blood Pressure 133/80 Blood Pressure 138/82 130/67 [Right Arm] O2 Sat by Pulse 97 100 Oximetry (%) 05/13/18 05/14/18 05/14/18 22:19 00:00 06:00 Temperature 98.9 F 98.4 F 98.4 F Pulse Rate 83 72 75 Pulse Rate [ Apical] Respiratory 17 17 17 Rate Blood Pressure 133/80 132/72 128/77 Blood Pressure [Right Arm] O2 Sat by Pulse 97 Oximetry (%) GENERAL:Young male, sitting comfortably in bed, Awake, alert, and fully oriented , in no acute distress. HEAD: Normal with no signs of trauma. EYES: EOM intact, no pallor or icterus. EARS, NOSE, THROAT: Ears normal. Moist mucous membranes. NECK: Supple. LUNGS: B/L Breath sounds equal, clear to auscultation bilaterally. No wheezes, and no crackles. No accessory muscle use. HEART: Regular rate and rhythm, normal S1 and S2 without murmur. ABDOMEN: Soft, nontender, not distended, normoactive bowel sounds, no guarding, no rebound, no masses. No hepatomegaly or splenomegaly. MUSCULOSKELETAL: Normal range of motion at all joints. No bony deformities or tenderness. No CVA tenderness. UPPER EXTREMITIES: 2+ pulses, warm, well-perfused. No cyanosis. No clubbing. No peripheral edema. LEFT LOWER EXTREMITY: 2+ pulses, warm, well-perfused. No calf tenderness. No peripheral edema. RIGHT LOWER EXTREMITY: 2+ pulses, warm, well-perfused. Right calf tenderness. Right LE swelling upto the calf, 2+ pitting edema, non erythemaous. NEUROLOGICAL: No facial droop, power 5/5 in all extremities, Cranial nerves II- XII intact. Normal speech. Gait not observed, sensation intact.. PSYCHIATRIC: Cooperative. Good eye contact. Appropriate mood and affect. SKIN: Warm, dry, normal turgor, no rashes or lesions noted, normal capillary refill. Laboratory Results - last 24 hr 05/13/18 05/13/18 05/13/18 15:45 15:45 15:45 WBC 7.4 RBC 4.65 Hgb 14.7 Hct 44.3 MCV 95.3 MCH 31.7 MCHC 33.2 RDW 12.8 Plt Count 217 MPV 9.6 Absolute Neuts (auto) 5.9 Neutrophils % 79.6 D Lymphocytes % 9.1 D Monocytes % 9.7 Eosinophils % 1.4 D Basophils % 0.2 PT with INR INR PTT (Actin FS) D-Dimer 11983 H Sodium 135 L Potassium 3.7 Chloride 101 Carbon Dioxide 27 Anion Gap 7 L BUN 12 Creatinine 1.1 Creat Clearance w eGFR > 60 Random Glucose 87 D Calcium 7.9 L Magnesium 1.8 Total Bilirubin 1.2 H AST 21 ALT 15 Alkaline Phosphatase 51 Creatine Kinase Creatine Kinase Index CK-MB (CK-2) Troponin I Total Protein 4.8 L Albumin 1.5 L 05/13/18 05/13/18 05/13/18 15:45 15:57 15:57 WBC RBC Hgb Hct MCV MCH MCHC RDW Plt Count MPV Absolute Neuts (auto) Neutrophils % Lymphocytes % Monocytes % Eosinophils % Basophils % PT with INR 10.4 INR 0.93 L PTT (Actin FS) D-Dimer Sodium Potassium Chloride Carbon Dioxide Anion Gap BUN Creatinine Creat Clearance w eGFR Random Glucose Calcium Magnesium Total Bilirubin AST ALT Alkaline Phosphatase Creatine Kinase 216 Creatine Kinase Index 1.2 CK-MB (CK-2) 2.7 Troponin I < 0.03 Total Protein Albumin 05/13/18 21:39 WBC RBC Hgb Hct MCV MCH MCHC RDW Plt Count MPV Absolute Neuts (auto) Neutrophils % Lymphocytes % Monocytes % Eosinophils % Basophils % PT with INR INR PTT (Actin FS) 65.8 H D-Dimer Sodium Potassium Chloride Carbon Dioxide Anion Gap BUN Creatinine Creat Clearance w eGFR Random Glucose Calcium Magnesium Total Bilirubin AST ALT Alkaline Phosphatase Creatine Kinase Creatine Kinase Index CK-MB (CK-2) Troponin I Total Protein Albumin CTA: Multiple pulmonary emboli in the RLL, RML, LLL, Left upper lobe and subsegmental branches. Bibasal atelectasic changes and infiltrates as well as small b/l pleural effusion, right > Left ASSESSMENT/PLAN: Patient is a 42 year old male was sent in from his PCP's office for the treatment of DVT and was found to have multiple B/L PE's. # Mutiple B/L Pulmonary Embolism-Likely unprovoked but could be provoked as well. C/O Right lower extremity swelling, Duplex revealed clot in the right pop vein CTA showed mutiple B/L PE's, detailed report as mentioned above D-dimer 85753. On admission, patient was hemodynamically stable, No significant EKG changes Admitted in Tele-Inpatient/continuous cardiac monitoring Patient was on Heparin Drip, now switched to Lovenox 100mg sq BID then to start warfarin 7.5mg HS and adjust the dose per coags Discussed with patient regarding different A/C Warfarin vs Noacs. Confirmed with the pharmacy that his insurance doesn't cover NOACs. Patient has been explained well regarding the coumadin use and he understands the risks and benefits, agrees to take it. Etiology of the embolism unknown at this time. His recent h/o travel could be a contributing factor. However have to rule out other causes. Needs an outpatient hypercoagulable workup. Would consider Heme/onc consult upon discharge Pulmonary consult requested. ECHO needed to r/o right heart strain. # FEN Not on IV fluids Electrolyes WNL Regular diet # Prophylaxis For DVT: Already on Lovenox For GI: Not indicated # Code Status: Full Code # Dispo: Admitted in Tele/Inpatient. Likely to be discharged on Wednesday after the ECHO. Illness, Investigation and Plan of care explained to the patient. He verbalized understanding. Case discussed with Dr. Mccracken. Visit type - Emergency Visit Emergency Visit: Yes ED Registration Date: 05/14/18 Care time: The patient presented to the Emergency Department on the above date and was hospitalized for further evaluation of their emergent condition. - New Patient This patient is new to me today: Yes Date on this admission: 05/14/18 - Critical Care Critical Care patient: No Hospitalist Screening - Colonoscopy Questionnaire Colonoscopy Questionnaire: Colonoscopy Questionnaire - Patient: 50 - 75 years old and never had a screening colonoscopy: No History of colon or rectal polyps, or CA: No History of IBD, Crohn's disease or UC: No History of abdominal radiation therapy as a child: No - Relative: 1 with colon or rectal CA, or polyps at age 60 or younger: No Colon or rectal CA diagnosed at age 45 or younger: No Multiple relatives with colon or rectal CA: No - Outcome: Screening Result: Negative Screen
[2018-05-14] MEDS ORDERED: ACETAMINOPHEN 325 MG TABLET (FP) PO PRN (09:32)
--- NOTE | 2018-05-14 09:34 | PN ---
Teaching Attending Note Name of Resident: Jessica Rivera ATTENDING PHYSICIAN STATEMENT I saw and evaluated the patient. I reviewed the resident's note and discussed the case with the resident. I agree with the resident's findings and plan as documented. SUBJECTIVE: CC: Cp and LE edema HPI:42 y/o man with no significant PMH who presented with b/l CP x 2days and RLE edema x 1.5 weeks and was found to have RLE DVT and b/l PEs. he developed LE edema in R side for 1.5 weeks then in last 2 days he started having L sided pleuritic CP , and then R sided CP. he denies SOB or palpitasions or syncopy or light headedness. he denies any h/o recent travel, recent sx or immobilization . no recent meds , no h/o cancer. father had lymphoma and a blood clot ( no details available) . no h/o miscarriages or sudden in family. he has personal h/o kidney stones, and ear surgery as a kid . denies an y h/o of GI//other bleed PCP obtained RLE US and a DVT was seen, then in ER, CTA showed b/l PEs. heparin gtt was started in ER last night and patient was transferred from [facility] . Now he is on floor, has no pain, or SOB. no palpitations and feels "good " OBJECTIVE: NAD , AAOx3. HEENT: MMM, no facial droop. EOMI. no LAP in neck CV: RRR, possible RUSB 2/6 SM . Lungs: CTAB Abd:soft, NT, ND , No hepatosplenomegaly, nl BS Ext: R leg edema , but no tenderness. DP 2+ b./l . nl sensation and range of motion in R LE . no LAP in axillae Neuro : EOMI, round equal pupils, reactive to light. tongue and uvula at mid line. facial sensation is NL. strength 5/5 in upper and lower extremities proximally anad distally. sensatio to light touch NL. reflexes 1+ biceps and knee jerk B/L imaging: CTA and Cxray reviewed. EKG: NL axes , sinus rhythm, no bundle branch block . No S1Q3T3. No tachycardia ASSESSMENT AND PLAN: HPI:42 y/o man with no significant PMH who presented with b/l CP x 2days and RLE edema x 1.5 weeks and was found to have RLE DVT and b/l PEs. 1- RLE DVT and b/l PEs: unprovoked. hemodynamically stable. No signs of R heart strain on EKG , and no hemodynamic unsalability to indicate poor prognosis. - started on heparin gtt last night - the need for AC for at least 6 month was explained to patient . determination on duration depends on hypercoagulable w/u as out pt - he understands the risk of bleed with AC. - his options of coumadin, NOAcs , and Lovenox were d/w him. He chose NOACS. He was made aware of the black box warning of spinal bleed. - Will call his pharmacy and check if Eliquis is covered by his insurance. if yes,will stop heparin gtt and start eliquis - echo - tele monitoring - heme f/u as out pt - pulm consult
[2018-05-14] MEDS ORDERED: oxyCODONE HCL 5 MG TABLET PO PRN (09:35)
--- NOTE | 2018-05-14 10:26 | CON.PULM ---
Consult Consult Specialty:: PULMONARY Referred by:: PMD Reason for Consultation:: PE/DVT - History of Present Illness Chief Complaint: PLEURITIC CHEST PAIN History of Present Illness: 42 PREVIOUSLY HEALTHY AA MALE NONSMOKER (OCCASIONAL MARIJUANA) PRESENTS WITH LEG SWELLING/CALF TENDERNESS TO PMD WHICH LED TO POSITIVE DUPLEX AND CTA REVEALING MULTIPLE B/L PE'S. PATIENT DENIES ALL THE USUAL RISK FACTORS FOR VTE EXCEPT A 3.5 HOUR CAR RIDE TO [place] APPROXIMATELY 2-3 WEEKS PRIOR TO SYMPTOMS WHERE HE STAYED FOR 1.5 HRS THEN RETURNED TO [place]. NO FAMILY HX OF CLOTS OR MALIGNANCY. - History Source History Provided By: Patient, Medical Record Limitations to Obtaining History: No Limitations - Past Medical History VACUUM CASTER: No: Alzheimer's Cardio/Vascular: No: AFIB Pulmonary: No: Asthma Gastrointestinal: No: Ascites, Cancer Hepatobiliary: No: Cirrhosis Renal/: Yes: Renal Calculi. No: Renal Failure Heme/Onc: No: Anemia Psych: No: Addictions Musculoskeletal: Yes: Other (OFTEN GETS BACK MUSCLE SPASMS) Rheumatology: No: Fibromyalgia Endocrine: No: Diabetes Mellitus - Past Surgical History Additional Surgical History: KIDNEY STONE REMOVAL - Alcohol/Substance Use Hx Alcohol Use: No - Smoking History Smoking history: Never smoked Have you smoked in the past 12 months: Yes Aproximately how many cigarettes per day: 2 - Social History Usual Living Arrangement: With Spouse ADL: Independent Place of : [facility] History of Recent Travel: Yes (SEE HPI) Home Medications - Allergies Allergies/Adverse Reactions: Allergies Allergy/AdvReac Type Severity Reaction Status Date / Time No Known Allergies Allergy Verified 05/13/18 15:50 - Home Medications Home Medications: Ambulatory Orders Apixaban [Eliquis] 10 mg PO BID #14 tablet 05/14/18 Family Disease History - Family Disease History Family History: Unremarkable Review of Systems - Review of Systems Constitutional: denies: Fever Eyes: denies: Blurred Vision HENT: denies: Difficult Swallowing Neck: denies: Decreased ROM Cardiovascular: reports: Chest Pain. denies: Palpitations Respiratory: reports: SOB, Other (PLEURITIC CP). denies: Exercise Intolerance, Hemoptysis, SOB on Exertion, Wheezing Gastrointestinal: reports: No Symptoms Genitourinary: reports: No Symptoms Breasts: reports: No Symptoms Reported Musculoskeletal: reports: Extremity Pain, Other (RIGHT CALF TENDERNESS) Integumentary: reports: No Symptoms Neurological: reports: No Symptoms Endocrine: reports: No Symptoms Hematology/Lymphatic: reports: No Symptoms Psychiatric: reports: No Symptoms Physical Exam Vital Sings: Vital Signs Temperature 98.4 F 05/14/18 06:00 Pulse Rate 75 05/14/18 06:00 Respiratory Rate 17 05/14/18 06:00 Blood Pressure 128/77 05/14/18 06:00 O2 Sat by Pulse Oximetry (%) 97 05/14/18 00:00 Constitutional: Yes: Calm Eyes: Yes: EOM Intact HENT: Yes: Normocephalic Neck: Yes: Trachea Midline Cardiovascular: Yes: Regular Rate and Rhythm Gastrointestinal: Yes: Normal Bowel Sounds Edema: RLE: 1+ Integumentary: Yes: WNL Neurological: Yes: WNL ...Motor Strength: WNL Psychiatric: Yes: WNL Labs: CBC, BMP 05/13/18 15:45 05/13/18 15:45 REST REVIEWED Imaging - Results Chest X-ray: Report Reviewed, Image Reviewed Cat Scan: Report Reviewed, Image Reviewed Problem List - Problems (1) DVT (deep venous thrombosis) Code(s): I82.409 - ACUTE EMBOLISM AND THOMBOS UNSP DEEP VN UNSP LOWER EXTREMITY (2) Pulmonary embolism Code(s): I26.99 - OTHER PULMONARY EMBOLISM WITHOUT ACUTE COR PULMONALE Assessment/Plan DIFFICULT TO DETERMINE WHETHER THE DVT/PE WAS PROVOKED VS UNPROVOKED AGREE WITH LOVENOX WITH BRIDGE TO COUMADIN NOACS UNABLE DUE TO INSURANCE REASONS WOULD R/O INHERITED THROMBOPHILIA WITH APPROPRIATE WORKUP IE. FACTOR V LEIDEN/ PROTEIN C/S DEFICIENCY/ANTITHROMBIN/DOUBT UNDERLYING MALIGNANCY BUT ONE MUST ALWAYS CONSIDER. 3 WEEKS PRIOR TO SYMPTOMS A 7 HOUR CAR RIDE COULD BE RESPONSIBLE FOR PRESENT CONDITION. THANK YOU FOR THIS CONSULT DR. AIDEE NATHAN
[2018-05-14] MEDS: ACETAMINOPHEN 325 MG TABLET (FP) PO PRN ×2 (10:57→17:20)
[2018-05-14] MEDS ORDERED: PT OWN MED DRAWER 7, Y5N ONE (11:01)
[2018-05-14] MEDS: ENOXAPARIN NA (PORCINE) 100 MG/1 ML DISP.SYRIN SQ SCH ×2 (11:05→21:18)
[2018-05-14] MEDS ORDERED: KETOROLAC TROMETHAMINE 30 MG/1 ML VIAL IVPUSH ONE (16:29)
[2018-05-14] MEDS: WARFARIN NA 7.5 MG TABLET (FP) PO SCH (17:20)
[2018-05-15] MEDS ORDERED: KETOROLAC TROMETHAMINE 30 MG/1 ML VIAL IVPUSH ONE (00:45)
[2018-05-15 06:51] LABS: BASO % 0.4 % (0-2.0); EOS % 2.2 % (0-4.5); HEMATOCRIT 43.3 % (35.4-49); HEMOGLOBIN 14.7 GM/dL (11.7-16.9); LYMPH % 14.3 % (8-40); MCH 31.6 pg (25.7-33.7); MCHC 33.9 g/dl (32.0-35.9); MEAN CELL VOLUME 93.2 fl (80-96); MEAN PLT VOLUME 9.6 fl (7.5-11.1); MONO % 13.1 % (3.8-10.2); PLATELET COUNT 210 K/MM3 (134-434); RBC 4.65 M/mm3 (4.00-5.60); RDW 13.3 % (11.9-15.9); WHITE BLOOD COUNT 6.4 K/mm3 (4.0-10.0)
[2018-05-15 07:42] LABS: CHOLESTEROL 261 mg/dL (50-200); HDL CHOLESTEROL 58 mg/dL (40-60); TRIGLYCERIDES 98 mg/dL (35-160)
[2018-05-15] MEDS: ENOXAPARIN NA (PORCINE) 100 MG/1 ML DISP.SYRIN SQ SCH (09:25)
--- NOTE | 2018-05-15 11:35 | PN ---
Progress Note (short form) - Note Progress Note: PULMONARY OFFERS NO COMPLAINTS NO CHANGE IN EXAM DISCUSSED WITH PMD AGREE WITH POSSIBLE DISCHARGE ONCE INR 2-3 THANK YOU Kee HOSKINS MD Problem List - Problems (1) DVT (deep venous thrombosis) Code(s): I82.409 - ACUTE EMBOLISM AND THOMBOS UNSP DEEP VN UNSP LOWER EXTREMITY (2) Pulmonary embolism Code(s): I26.99 - OTHER PULMONARY EMBOLISM WITHOUT ACUTE COR PULMONALE
--- NOTE | 2018-05-15 14:05 | PN ---
Progress Note (short form) - Note Progress Note: Subjective: No fever or chills. has no SOB Objective: Vital Signs: I&O: Physical Exam: Labs: Imaging: Assessment/Plan:
[2018-05-15 14:29] VITALS: BP 155/84; PULSE 92; TEMP 98.9
[2018-05-15 15:05] LABS: INR 1.09 (0.83-1.09); PROTHROMBIN TIME (PATIENT) 12.3 SEC (9.7-13.0)
--- NOTE | 2018-05-15 15:35 | DS ---
Physical Examination Vital Signs: Vital Signs Temperature 98.9 F 05/15/18 14:00 Pulse Rate 92 H 05/15/18 14:00 Respiratory Rate 20 05/15/18 14:00 Blood Pressure 155/84 05/15/18 14:00 O2 Sat by Pulse Oximetry (%) 97 05/15/18 10:00 Findings/Remarks: minimal pleuritic chest pain. no fever or chills. no SOB . NAD , AAOx3. HEENT: MMM, no facial droop. EOMI. no LAP in neck CV: RRR. No murmurs heard today Lungs: CTAB Abd:soft, NT, ND , No hepatosplenomegaly, nl BS Ext: R leg edema , but no tenderness. DP 2+ b./l . nl sensation and range of motion in R LE . Labs: CBC, BMP 05/15/18 05:30 05/13/18 15:45 Discharge Summary Reason For Visit: MULTIPLE EMBOLUS Current Active Problems DVT (deep venous thrombosis) (Acute) Pulmonary embolism (Acute) Hospital Course: HPI:42 y/o man with no significant PMH who presented with b/l CP x 2days and RLE edema x 1.5 weeks and was found to have RLE DVT and b/l PEs. Patient actually saw his PCP and was diagnosed with RLE DVt, and was sent to the ER. in the ER he was hemodynamically stable, no tachycardia an dno hypotension were found. his CT scan showed b/l PEs and his EKG did not show any signs of R heart strain . he was started on heparin gtt then switched to Lovenox in bridging to coumadin. plan is to continue to bridge with lovenox until INR 2-3 , then he should remain on Lovenox for at least 24 hr in an overlap before stopping lovenox. It was not clear whether his DVT was provoked or not, but he had a prolonged car ride 3 weeks prior and this could have triggered the DVt. regardess, he needs hypercoagulable w/u do ne , and he was referred to hematology. He also will need echo, done , and this was relayed to his PCP Dr Marcy Mendoza . Of note , his insurance did not cover NOACS. Dispo : DC home Condition stable f/u With PCP and heme . blood work : INR 05/17, then every other day until INR 2-3 . time spent 40 min Condition: Improved - Instructions Diet, Activity, Other Instructions: You were admitted for acute clots in your lungs. you will be on coumadin, your INR goal 2-3 . until INR is therapeutic you will need to be on Lovenox. you need INR check on Thursday 05/[address] Freitas will be able to see you on . please call tomorrow and make an appointment with her. monitor for any signs of bleed. take a steady diet. you need to follow with hematology . you need echo to evaluate your heart. avoid trauma and cuts to avoid bleeding you will need INR every other day initially until INR is therapeutic . after INR is 2-3 , you need to be on lovenox for another 24 hr for overlap. your doctor will instruct you about that . Good luck Referrals: Rebecca Fulton MD [Primary Care Provider] - 1 Week Jm Valdes MD [Staff Physician] - 2 Weeks Disposition: HOME - Home Medications Comprehensive Discharge Medication List: Ambulatory Orders Apixaban [Eliquis] 10 mg PO BID #14 tablet 05/14/18 Enoxaparin Sodium [Lovenox] 100 mg NR BID #20 ml 05/15/18 Miscellaneous Medical Supply [Outpatient Order] 1 each ASDIR #1 misc Warfarin Sodium [Coumadin] 7.5 mg PO HS #90 tablet 05/15/18 This patient is new to me today: No Emergency Visit: Yes ED Registration Date: 05/14/18 Care time: The patient presented to the Emergency Department on the above date and was hospitalized for further evaluation of their emergent condition. Critical Care patient: No - Discharge Referral Referred to [facility] No
[2018-05-15] MEDS: WARFARIN NA 7.5 MG TABLET (FP) PO SCH (16:03)
--- NOTE | 2018-05-16 11:22 | EKG ---
Test Reason : Blood Pressure : / mmHG Vent. Rate : 075 BPM Atrial Rate : 075 BPM P-R Int : 160 ms QRS Dur : 080 ms QT Int : 358 ms P-R-T Axes : 044 010 007 degrees QTc Int : 399 ms NORMAL SINUS RHYTHM NONSPECIFIC ST AND T WAVE ABNORMALITY ABNORMAL ECG WHEN COMPARED WITH ECG OF 21-OCT-2016 10:07, NO SIGNIFICANT CHANGE WAS FOUND Confirmed by PRESTON RAMIREZ MD ([id number]) on 05/16/2018 11:22:13 AM Referred By: MD SILVA Confirmed By:PRESTON RAMIREZ MD
== END 2018-05-15 16:27 | disposition home or self-care (01) | DRG 299 ==
LOC: FER 15:35 → J4W 05-14
PROVIDERS: ADMIT Internal Medicine; ATTEND Internal Medicine
DX: I82.431 Acute embolism and thrombosis of right popliteal vein (principal); I26.99 Other pulmonary embolism without acute cor pulmonale; J98.11 Atelectasis; I82.441 Acute embolism and thrombosis of right tibial vein
CPT/HCPCS: 36415; 71045-TC-FY; 71275-TC; 80053; 80061; 82550; 82553; 83036; 83721; 83735; 84484; 85025; 85027; 85379; 85610; 85730; 93005; 99285-25; J1644; J7030